=== PATIENT | male | born 1945 | race Caucasian/White ===

== ENCOUNTER 2021-03-02 12:59 | Observation (INO) ==
[~2021-03-02 12:59] MED LIST: EPHEDrine (Pressors) 50 MG/ML VIAL IV PUSH SCH; Lidocaine 2% PF 5 ML VIAL INJ SCH; Phenylephrine 40 mcg/mL 10mL (400mcg) SYRINGE IV SCH; Propofol 10 MG/ML 20 ML BTL IV SCH; fentaNYL 100 mcg/2 ml 50 MCG/ML VIAL IV SCH
[2021-03-02] MEDS ORDERED: NS 0.9% 1000 ml BAG 1,000 ML IV ONE (13:09)
[2021-03-02 14:20] LABS: ABS Eosinophils 0.1 10^3/ul (0-0.6); ABS Lymphocytes 0.5 10^3/ul (1.0-4.8); ABS Monocytes 0.6 10^3/ul (0-0.8); ABS Neutrophils 8.8 10^3/ul (1.5-7.7); Eosinophil % 0.7 %; Hematocrit 33 % (42-52); Hemoglobin 11.4 g/dL (14.0-18.0); Lymphocyte % 5.4 %; Mean Corpuscular HGB Conc 34 g/dL (31-36); Mean Corpuscular Hemoglobin 31 pg (27-31); Mean Corpuscular Volume 90 fL (80-94); Platelet Count 381 10^3/uL (150-450); Red Blood Count 3.68 10^6 /uL (4.18-5.48); Red Cell Distribution Width 13 % (10-15); White Blood Count 10.1 10^3/uL (3.5-10.8)
[2021-03-02 14:37] LABS: Albumin 3.9 g/dL (3.2-5.2); Albumin/Globulin Ratio 1.5 (1-3); Calcium 8.5 mg/dL (8.6-10.3); EGFR African American 73.1 (>60); EGFR Non-African American 60.4 (>60); Globulin 2.6 g/dL (2-4); Potassium 3.1 mmol/L (3.5-5.0); Total Bilirubin 0.8 mg/dL (0.2-1.0); Total Protein 6.5 g/dL (6.4-8.9)
[2021-03-02] MEDS ORDERED: cefTRIAXone 2 GM ADDV.VIAL 2 GM in NS 0.9% 100 ml BAG 100 ML IVPB ONE (14:50)
[2021-03-02] MEDS ORDERED: cefTRIAXone 2 GM ADDV.VIAL ONE (14:58)
[2021-03-02] MEDS: KCL 20 MEQ/100 ML IVPREMIX 20 MEQ/100 ML BAG IV SCH ×2 (17:25→21:28)
[2021-03-02] MEDS ORDERED: HYDROmorphone 1 MG/1 ML SYRINGE IV PRN (18:43)
[2021-03-02] MEDS ORDERED: DiMENhydriNATE IV 50 mg/ml 1 ml VIAL IV PUSH PRN (18:43)
[2021-03-02] MEDS ORDERED: Acetaminophen IV 1 GM/100ML 1,000 MG/100 ML VIAL IVPB PRN (18:43)
[2021-03-02] MEDS ORDERED: Naloxone 0.4 mg VIAL 0.4 mg/ml 1 ml VIAL IV PRN (18:43)
[2021-03-02] MEDS ORDERED: Ondansetron 4 mg VIAL 2 MG/ML 2 ml VIAL IV PRN ×2 (18:43→21:28)
[2021-03-02] MEDS ORDERED: fentaNYL 100 mcg/2 ml 50 MCG/ML VIAL IV PRN (18:43)
[2021-03-02] MEDS ORDERED: Potassium Chlor 20 meq TAB.ER PO ONE (20:39)
[2021-03-02 21:12] LABS: Magnesium 1.2 mg/dL (1.9-2.7)
[2021-03-02] MEDS ORDERED: Magnesium Sulf 4 GM/100 ML IV 4,000 MG/100 ML BAG IVPB ONE (21:28)
[2021-03-02] MEDS: Lactated Ringers 1000 ml BAG 1,000 ML IV SCH (21:28)
[2021-03-02 21:29] LABS: Hematocrit 31 % (42-52); Hemoglobin 10.5 g/dL (14.0-18.0)
[2021-03-02] MEDS ORDERED: Dextrose 50% Syringe 50 ml 25 GM/50 ML SYRINGE IV PUSH PRN (22:32)
[2021-03-02] MEDS: Lidocaine 2% JELLY 6 ML TOPICAL SCH (23:08)
[2021-03-03 02:04] LABS: Hematocrit 29 % (42-52)
[2021-03-03 03:50] LABS: Calcium 8.1 mg/dL (8.6-10.3); EGFR African American 105.8 (>60); EGFR Non-African American 87.4 (>60); Magnesium 2.6 mg/dL (1.9-2.7); Potassium 4.1 mmol/L (3.5-5.0)
[2021-03-03 03:59] LABS: ABS Lymphocytes 0.3 10^3/ul (1.0-4.8); ABS Monocytes 0.1 10^3/ul (0-0.8); ABS Neutrophils 3.8 10^3/ul (1.5-7.7); Lymphocyte % 6.8 %; Mean Corpuscular HGB Conc 35 g/dL (31-36); Mean Corpuscular Hemoglobin 32 pg (27-31); Mean Corpuscular Volume 90 fL (80-94); Mean Platelet Volume 6.4 fL (7.4-10.4); Nucleated Red Blood Cells % 0.1; Platelet Count 288 10^3/uL (150-450); Red Blood Count 3.18 10^6 /uL (4.18-5.48); Red Cell Distribution Width 13 % (10-15); White Blood Count 4.1 10^3/uL (3.5-10.8)
[2021-03-03] MEDS: Lactated Ringers 1000 ml BAG 1,000 ML IV SCH (07:41)
[2021-03-03] MEDS ORDERED: TIMOLOL MALEATE OPHTHALMIC SCH (09:00)
[2021-03-03] MEDS ORDERED: Vitamin THERAPEUTIC TAB PO SCH (09:00)
[2021-03-03] MEDS ORDERED: Dorzolamide/Timolol OPTH (NF) 10 ML BOT RIGHT EYE SCH (09:00)
[2021-03-03] MEDS: Lidocaine 2% JELLY 6 ML TOPICAL SCH (09:20)
[2021-03-03 11:55] VITALS: BP 113/65
[2021-03-03] MEDS ORDERED: Latanoprost 0.005% 2.5 ml BTL RIGHT EYE SCH (21:00)
== END 2021-03-03 12:10 | disposition home or self-care (01) ==
LOC: ED 12:59 → OR 20:49 → SSU 20:49
PROVIDERS: ADMIT Urology; ATTEND Urology

== ENCOUNTER 2021-06-21 11:05 | Inpatient (IN) ==
[2021-06-21 13:35] LABS: ABS Lymphocytes 0.5 10^3/ul (1.0-4.8); ABS Monocytes 0.9 10^3/ul (0-0.8); ABS Neutrophils 6.3 10^3/ul (1.5-7.7); Hematocrit 38 % (42-52); Hemoglobin 12.1 g/dL (14.0-18.0); Lymphocyte % 6.7 %; Mean Corpuscular HGB Conc 32 g/dL (31-36); Mean Corpuscular Hemoglobin 29 pg (27-31); Mean Corpuscular Volume 89 fL (80-94); Mean Platelet Volume 7.3 fL (7.4-10.4); Nucleated Red Blood Cells % 0.1; Platelet Count 224 10^3/uL (150-450); Red Blood Count 4.22 10^6 /uL (4.18-5.48); Red Cell Distribution Width 15 % (10-15); White Blood Count 7.7 10^3/uL (3.5-10.8)
[2021-06-21 13:57] LABS: ALT 54 U/L (7-52); AST 112 U/L (13-39); Albumin/Globulin Ratio 1.2 (1-3); Alkaline Phosphatase 69 U/L (35-149); Anion Gap 10 mmol/L (2-11); Blood Urea Nitrogen 53 mg/dL (6-24); C Reactive Protein 336.08 mg/L (<8.01); CO2 Carbon Dioxide 30 mmol/L (22-32); Calcium 9.4 mg/dL (8.6-10.3); Chloride 96 mmol/L (101-111); EGFR African American 36.8 (>60); EGFR Non-African American 30.4 (>60); Globulin 3.4 g/dL (2-4); Glucose 125 mg/dL (70-100); Potassium 3.5 mmol/L (3.5-5.0); Sodium 136 mmol/L (135-145); Total Protein 7.4 g/dL (6.4-8.9)
[2021-06-21 14:01] LABS: Troponin I 0.09 ng/mL (<0.03)
[2021-06-21 14:01] LABS: Urine Appearance Turbid; Urine Bilirubin Negative (Negative); Urine Blood 1+ (Negative); Urine Color Amber; Urine Glucose Negative (Negative); Urine Ketones Negative (Negative); Urine Nitrite Negative (Negative); Urine Protein 3+(>=500 mg/dL) (Negative); Urine Specific Gravity 1.013 (1.002-1.030); Urine Urobilinogen Negative (Negative)
[2021-06-21 14:03] LABS: INR 1.2 (0.86-1.15)
[2021-06-21] MEDS ORDERED: Lactated Ringers 1000 ml BAG 1,000 ML IV ONE ×2 (14:04→17:45)
[2021-06-21 14:10] LABS: Urine Amorphous Crystals Present (Absent); Urine Bacteria 1+ (Absent); Urine Red Blood Cell 2+(6-10/hpf) (Absent); Urine Squamous Epithelial Cell Present (Absent); Urine White Blood Cell 3+(>20/hpf) (Absent)
[2021-06-21] MEDS ORDERED: cefTRIAXone 1 gm/50 mL NS BAG 1 GM/50 ML BAG IV ONE (14:32)
[2021-06-21 14:42] LABS: Rapid COVID-19 Molecular Undetected (Undetected)
[2021-06-21 18:15] LABS: Influenza A Molecular Negative (Negative); Influenza B Molecular Negative (Negative)
[2021-06-21 18:25] LABS: Troponin I 0.05 ng/mL (<0.03)
[2021-06-21] MEDS ORDERED: Enoxaparin 30 MG/0.3 ML SYR SUBCUT SCH (19:00)
[2021-06-21 19:06] LABS: Urine Creatinine Concentration 167.38 mg/dL
[2021-06-21 19:39] LABS: Creatine Kinase 1211 U/L (10-223)
[2021-06-21] MEDS ORDERED: Albuterol HFA INHALER 8 gm MDI INH PRN (19:40)
[2021-06-21] MEDS: Mometasone/Formoter 200/5 MDI INH SCH (21:44)
[2021-06-22] MEDS ORDERED: Senna TAB 8.6 mg TAB PO ONE (01:53)
[2021-06-22] MEDS: Polyethylene Glycol 3350 17 GM PACKET PO SCH ×2 (02:59→09:29)
[2021-06-22 04:59] LABS: Hematocrit 30 % (42-52); Mean Corpuscular HGB Conc 33 g/dL (31-36); Mean Corpuscular Hemoglobin 29 pg (27-31); Mean Corpuscular Volume 87 fL (80-94); Mean Platelet Volume 7.3 fL (7.4-10.4); Platelet Count 158 10^3/uL (150-450); Red Blood Count 3.46 10^6 /uL (4.18-5.48); Red Cell Distribution Width 14 % (10-15)
[2021-06-22 05:10] LABS: Calcium 8.5 mg/dL (8.6-10.3); Magnesium 1.6 mg/dL (1.9-2.7); Potassium 3.1 mmol/L (3.5-5.0)
[2021-06-22 05:16] LABS: EGFR African American 47.5 (>60); EGFR Non-African American 39.3 (>60)
[2021-06-22 05:21] LABS: Troponin I 0.05 ng/mL (<0.03)
[2021-06-22] MEDS ORDERED: Potassium Chlor 20 meq TAB.ER PO ONE (06:35)
[2021-06-22] MEDS: Mometasone/Formoter 200/5 MDI INH SCH ×2 (08:34→19:59)
[2021-06-22] MEDS: Timolol 0.5% OPTH.SOL BTL OPHTHALMIC SCH (09:29)
[2021-06-22] MEDS ORDERED: cefTRIAXone 1 gm/50 mL NS BAG 1 GM/50 ML BAG IVPB SCH ×2 (15:00→16:00)
[2021-06-22 17:05] LABS: Myoglobin 358.9 ng/mL (17.4-105.7)
[2021-06-22] MEDS ORDERED: Lactated Ringers 1000 ml BAG 1,000 ML IV ONE (19:41)
[2021-06-22] MEDS ORDERED: Enoxaparin 30 MG/0.3 ML SYR SUBCUT SCH (21:00)
[2021-06-23 08:00] LABS: Hematocrit 33 % (42-52); Hemoglobin 11.2 g/dL (14.0-18.0); Mean Corpuscular HGB Conc 34 g/dL (31-36); Mean Corpuscular Hemoglobin 29 pg (27-31); Mean Corpuscular Volume 87 fL (80-94); Mean Platelet Volume 6.8 fL (7.4-10.4); Platelet Count 195 10^3/uL (150-450); Red Blood Count 3.81 10^6 /uL (4.18-5.48); Red Cell Distribution Width 14 % (10-15); White Blood Count 5.5 10^3/uL (3.5-10.8)
[2021-06-23 08:17] LABS: Calcium 8.8 mg/dL (8.6-10.3); EGFR African American 72.4 (>60); EGFR Non-African American 59.9 (>60); Magnesium 1.6 mg/dL (1.9-2.7); Potassium 3.3 mmol/L (3.5-5.0)
[2021-06-23] MEDS: Polyethylene Glycol 3350 17 GM PACKET PO SCH (08:26)
[2021-06-23] MEDS: Timolol 0.5% OPTH.SOL BTL OPHTHALMIC SCH (08:32)
[2021-06-23] MEDS: Mometasone/Formoter 200/5 MDI INH SCH (09:44)
[2021-06-23] MEDS ORDERED: Potassium Chlor 20 meq TAB.ER PO ONE (10:33)
[2021-06-23] MEDS ORDERED: Magnesium Sulf 4 GM/100 ML IV 4,000 MG/100 ML BAG IVPB ONE (10:33)
[2021-06-23 11:24] VITALS: BP 107/71
== END 2021-06-23 14:53 | disposition home or self-care (01) | DRG 690 ==
LOC: SUATTDRO → ED 11:05 → MED 11:05 → SSU 06-22 21:13
PROVIDERS: ADMIT Internal Medicine; ATTEND Internal Medicine

== ENCOUNTER 2022-05-24 13:17 | Observation (INO) ==
[~2022-05-24 13:17] MED LIST changes: +Buffered Lidocaine 1% SYRIN 1 ml INTRADERM ONE; -EPHEDrine (Pressors) 50 MG/ML VIAL IV PUSH SCH; +Lactated Ringers 1000 ml BAG 1,000 ML IV SCH; -Lidocaine 2% PF 5 ML VIAL INJ SCH; +Naloxone 0.4 mg VIAL 0.4 mg/ml 1 ml VIAL IV PRN; -Phenylephrine 40 mcg/mL 10mL (400mcg) SYRINGE IV SCH; -Propofol 10 MG/ML 20 ML BTL IV SCH; +fentaNYL 100 mcg/2 ml 50 MCG/ML VIAL IV PRN; -fentaNYL 100 mcg/2 ml 50 MCG/ML VIAL IV SCH
[2022-05-24] MEDS ORDERED: Propofol 10 MG/ML 20 ML BTL ONE ×2 (16:09)
[2022-05-24] MEDS ORDERED: Phenylephrine 40 mcg/mL 10mL (400mcg) SYRINGE ONE ×2 (16:10→16:35)
[2022-05-24] MEDS ORDERED: Propofol 10 mg/ml 100 ML BTL 100 ML ONE (16:16)
[2022-05-24] MEDS ORDERED: Sterile Water for Inj 10 ML ONE ×2 (16:37→16:44)
[2022-05-24] MEDS ORDERED: Acetaminophen IV 1 GM/100ML 1,000 MG/100 ML BAG IV PRN (19:46)
[2022-05-24] MEDS ORDERED: Zosyn per Pharmacy NOTE FOLLOW UP SCH (20:00)
[2022-05-24] MEDS ORDERED: D5LR 1000 ml BAG 1,000 ML IV SCH (20:00)
[2022-05-24] MEDS ORDERED: Piperacillin/Tazobac ADVAN 3.375 GM in NS 0.9% 100 ml BAG 100 ML IV ONE (22:00)
[2022-05-24] MEDS: Pantoprazole VIAL 40 MG VIAL IV SCH (22:06)
[2022-05-24] MEDS ORDERED: Fluconazole 400 MG IVPREMIX 400 MG/200 ML BAG IVPB SCH (23:00)
[2022-05-24 23:01] LABS: ABS Lymphocytes 0.5 10^3/ul (1.0-4.8); ABS Monocytes 0.2 10^3/ul (0-0.8); ABS Neutrophils 5.4 10^3/ul (1.5-7.7); Eosinophil % 0.1 %; Hematocrit 24 % (42-52); Hemoglobin 8.4 g/dL (14.0-18.0); Lymphocyte % 8.7 %; Mean Corpuscular HGB Conc 35 g/dL (31-36); Mean Corpuscular Hemoglobin 30 pg (27-31); Mean Corpuscular Volume 88 fL (80-94); Mean Platelet Volume 6.9 fL (7.4-10.4); Platelet Count 256 10^3/uL (150-450); Red Blood Count 2.78 10^6 /uL (4.18-5.48); Red Cell Distribution Width 14 % (10-15); White Blood Count 6.1 10^3/uL (3.5-10.8)
[2022-05-24 23:16] LABS: Albumin 3.4 g/dL (3.2-5.2); Albumin/Globulin Ratio 1.5 (1-3); Calcium 8.3 mg/dL (8.6-10.3); Globulin 2.2 g/dL (2-4); Total Bilirubin 0.5 mg/dL (0.2-1.0); Total Protein 5.6 g/dL (6.4-8.9); eGFR CKD-EPI 32.2 (>60)
[2022-05-25] MEDS: ZOSYN 3.375 GM Q8H per EXTENDED INFUSION IV SCH ×2 (02:46→12:15)
[2022-05-25] MEDS: Pantoprazole VIAL 40 MG VIAL IV SCH (08:10)
[2022-05-25] MEDS ORDERED: methylPREDNISolone SOD SUCC 40 mg/ml 1 ml VIAL IV SCH (09:00)
[2022-05-25] MEDS ORDERED: Timolol 0.5% OPTH.SOL BTL RIGHT EYE SCH (09:00)
[2022-05-25 10:18] LABS: ABS Lymphocytes 0.4 10^3/ul (1.0-4.8); ABS Monocytes 0.5 10^3/ul (0-0.8); ABS Neutrophils 6.7 10^3/ul (1.5-7.7); Eosinophil % 0.1 %; Hematocrit 27 % (42-52); Hemoglobin 9.2 g/dL (14.0-18.0); Lymphocyte % 5.8 %; Mean Corpuscular HGB Conc 34 g/dL (31-36); Mean Corpuscular Hemoglobin 30 pg (27-31); Mean Corpuscular Volume 87 fL (80-94); Mean Platelet Volume 6.8 fL (7.4-10.4); Platelet Count 302 10^3/uL (150-450); Red Blood Count 3.11 10^6 /uL (4.18-5.48); Red Cell Distribution Width 13 % (10-15); White Blood Count 7.7 10^3/uL (3.5-10.8)
[2022-05-25 10:49] LABS: % Iron Saturation 56 % (15-55); C Reactive Protein 51.1 mg/L (<8.01); Calcium 8.5 mg/dL (8.6-10.3); Iron 98 ug/dL (50-212); Potassium 4.2 mmol/L (3.5-5.0); Total Iron Binding Capacity 175 mcg/dL (250-450); Transferrin 125 mg/dL (203-362); Unsaturated Iron Binding 77 ug/dL; eGFR CKD-EPI 30.6 (>60)
[2022-05-25] MEDS ORDERED: Lactated Ringers 1000 ml BAG 1,000 ML IV ONE (10:58)
[2022-05-25 11:14] LABS: Folate > 20.00 ng/mL (5.90-24.80)
[2022-05-25 11:15] LABS: Vitamin B12 1224 pg/mL (180-914)
[2022-05-25 15:46] LABS: Calcium 8.3 mg/dL (8.6-10.3); eGFR CKD-EPI 34.4 (>60)
[2022-05-25 16:17] VITALS: BP 120/74
== END 2022-05-25 18:30 | disposition home or self-care (01) ==
LOC: SSU 13:17 → OR 13:17 → SUATTDRO 21:14
PROVIDERS: ADMIT Internal Medicine; ATTEND Internal Medicine
PROC: O.GIEGD (2022-05-24 15:00)

== ENCOUNTER 2022-08-26 10:00 | Inpatient (IN) ==
[2022-08-26] MEDS ORDERED: Lactated Ringers 1000 ml BAG 1,000 ML IV ONE ×2 (11:43→13:46)
[2022-08-26 11:48] LABS: PO2 Arterial 60 mmHg (80-100)
[2022-08-26 11:57] LABS: PCO2 Arterial 88 mmHg (35-45)
[2022-08-26 12:05] LABS: ABS Eosinophils 0.4 10^3/ul (0-0.6); ABS Lymphocytes 0.6 10^3/ul (1.0-4.8); ABS Monocytes 0.3 10^3/ul (0-0.8); ABS Neutrophils 12.3 10^3/ul (1.5-7.7); Hematocrit 50 % (42-52); Hemoglobin 15.9 g/dL (14.0-18.0); Lymphocyte % 4.3 %; Mean Corpuscular HGB Conc 32 g/dL (31-36); Mean Corpuscular Hemoglobin 30 pg (27-31); Mean Corpuscular Volume 93 fL (80-94); Nucleated Red Blood Cells % 0.1; Platelet Count 210 10^3/uL (150-450); Red Blood Count 5.36 10^6 /uL (4.18-5.48); Red Cell Distribution Width 14 % (10-15); White Blood Count 13.7 10^3/uL (3.5-10.8)
[2022-08-26 12:38] LABS: High Sens Troponin Baseline 9 pg/mL (<20)
[2022-08-26 12:43] LABS: ALT 18 U/L (7-52); Albumin 4.9 g/dL (3.2-5.2); Alkaline Phosphatase 65 U/L (35-149); Anion Gap 7 mmol/L (2-11); Blood Urea Nitrogen 44 mg/dL (6-24); C Reactive Protein 5.55 mg/L (<8.01); CO2 Carbon Dioxide 35 mmol/L (22-32); Calcium 10.2 mg/dL (8.6-10.3); Chloride 97 mmol/L (101-111); Creatine Kinase 24 U/L (10-223); Globulin 2.4 g/dL (2-4); Glucose 208 mg/dL (70-100); Magnesium 2.1 mg/dL (1.9-2.7); Sodium 139 mmol/L (135-145); Total Protein 7.3 g/dL (6.4-8.9); eGFR CKD-EPI 61.3 (>60)
[2022-08-26 12:45] LABS: Activated Partial Thrombo Time 19.5 seconds (26.0-38.0)
[2022-08-26 13:11] LABS: PO2 Arterial 77 mmHg (80-100)
[2022-08-26 13:13] LABS: PCO2 Arterial 74 mmHg (35-45)
[2022-08-26 13:51] LABS: High Sensitivity Troponin 1 Hr 9 pg/mL (<20)
[2022-08-26 14:27] LABS: TSH Ultra Thyroid Stim Horm 0.92 mcIU/mL (0.34-5.60)
[2022-08-26] MEDS: Albuterol/Ipratropium NEB.SOL (2.5/0.5 MG) 3 ML NEB.SOLN INH SCH ×2 (15:14→19:30)
[2022-08-26] MEDS ORDERED: Hydrocortisone INJ 100 MG/2ML 2 ML VIAL IV ONE (15:59)
[2022-08-26 17:11] LABS: PCO2 Arterial 65 mmHg (35-45); PO2 Arterial 76 mmHg (80-100)
[2022-08-26] MEDS: Enoxaparin 40 MG/0.4 ML SYR SUBCUT SCH (17:11)
[2022-08-26 17:23] LABS: Phosphorus 4.2 mg/dL (2.5-5.0)
[2022-08-26] MEDS ORDERED: Haloperidol 5 mg/ml SDV IV/IM 5 MG/ML AMP ONE (20:16)
[2022-08-26] MEDS: Haloperidol 5 mg/ml SDV IV/IM 5 MG/ML AMP IV SLOW PU ONE ×2 (20:17→20:37)
[2022-08-26] MEDS: CMC:Dorzolamide/Timolol OPTH (NF) 10 ML BOT RIGHT EYE SCH (20:40)
[2022-08-26] MEDS: Latanoprost 0.005% 2.5 ml BTL RIGHT EYE SCH (20:40)
[2022-08-26] MEDS ORDERED: NS 0.9% IVPB ONE (23:00)
[2022-08-26] MEDS ORDERED: ACYCLOVIR IVPB ONE (23:00)
[2022-08-27] MEDS: Hydrocortisone INJ 100 MG/2ML 2 ML VIAL IV SCH ×2 (00:29→05:07)
[2022-08-27 05:52] LABS: Albumin 3.8 g/dL (3.2-5.2); Albumin/Globulin Ratio 1.9 (1-3); Calcium 9.4 mg/dL (8.6-10.3); Magnesium 1.7 mg/dL (1.9-2.7); Phosphorus 4.3 mg/dL (2.5-5.0); Potassium 4.8 mmol/L (3.5-5.0); Total Bilirubin 0.4 mg/dL (0.2-1.0); Total Protein 5.8 g/dL (6.4-8.9); eGFR CKD-EPI 65.1 (>60)
[2022-08-27] MEDS ORDERED: Iodixanol (CONTRAST) 320 MG/ML 100 ML SDV IV ONE (05:54)
[2022-08-27 06:10] LABS: PCO2 Arterial 64 mmHg (35-45); PO2 Arterial 69 mmHg (80-100)
[2022-08-27] MEDS ORDERED: Magnesium Sulfate 2 gm BAG 2 GM/50 ML BAG IVPB ONE (06:47)
[2022-08-27 07:19] LABS: ABS Lymphocytes 0.4 10^3/ul (1.0-4.8); ABS Monocytes 0.3 10^3/ul (0-0.8); ABS Neutrophils 6.9 10^3/ul (1.5-7.7); Hematocrit 40 % (42-52); Hemoglobin 13.3 g/dL (14.0-18.0); Lymphocyte % 5.4 %; Mean Corpuscular HGB Conc 33 g/dL (31-36); Mean Corpuscular Hemoglobin 30 pg (27-31); Mean Corpuscular Volume 91 fL (80-94); Mean Platelet Volume 6.7 fL (7.4-10.4); Platelet Count 178 10^3/uL (150-450); Red Blood Count 4.43 10^6 /uL (4.18-5.48); Red Cell Distribution Width 14 % (10-15); White Blood Count 7.6 10^3/uL (3.5-10.8)
[2022-08-27] MEDS: Albuterol/Ipratropium NEB.SOL (2.5/0.5 MG) 3 ML NEB.SOLN INH SCH (08:10)
[2022-08-27] MEDS ORDERED: Albuterol/Ipratropium NEB.SOL (2.5/0.5 MG) 3 ML NEB.SOLN INH PRN (10:38)
[2022-08-27 11:34] LABS: High Sensitivity Troponin 1 Hr 7 pg/mL (<20)
[2022-08-27 13:21] LABS: Urine Appearance Turbid; Urine Bilirubin Negative (Negative); Urine Blood Negative (Negative); Urine Color Yellow; Urine Glucose Negative (Negative); Urine Ketones Negative (Negative); Urine Nitrite Negative (Negative); Urine Protein 2+(100 mg/dL) (Negative); Urine Specific Gravity 1.044 (1.002-1.030); Urine Urobilinogen Negative (Negative)
[2022-08-27 13:30] LABS: Urine Bacteria 1+ (Absent); Urine Red Blood Cell 1+(3-5/hpf) (Absent); Urine White Blood Cell 2+(11-20/hpf) (Absent)
[2022-08-27] MEDS: CMC:Dorzolamide/Timolol OPTH (NF) 10 ML BOT RIGHT EYE SCH ×2 (13:40→21:36)
[2022-08-27] MEDS: Enoxaparin 40 MG/0.4 ML SYR SUBCUT SCH (13:43)
[2022-08-27] MEDS ORDERED: Hydrocortisone INJ 100 MG/2ML 2 ML VIAL IV SCH (14:00)
[2022-08-27 14:40] LABS: HDL Cholesterol 39.4 mg/dL
[2022-08-27] MEDS ORDERED: Piperacillin/Tazobac ADVAN 3.375 GM in NS 0.9% 100 ml BAG 100 ML IV ONE (19:44)
[2022-08-27] MEDS ORDERED: Zosyn per Pharmacy NOTE FOLLOW UP SCH (20:00)
[2022-08-27] MEDS: Latanoprost 0.005% 2.5 ml BTL RIGHT EYE SCH (21:33)
[2022-08-28] MEDS: ZOSYN 3.375 GM Q6H - Intermittant 30 min Infusion IV SCH ×4 (01:51→13:06)
[2022-08-28] MEDS ORDERED: Hydrocortisone INJ 100 MG/2ML 2 ML VIAL IV SCH (06:00)
[2022-08-28] MEDS: CMC:Dorzolamide/Timolol OPTH (NF) 10 ML BOT RIGHT EYE SCH ×2 (09:38→20:04)
[2022-08-28 09:44] LABS: Hematocrit 45 % (42-52); Hemoglobin 14.8 g/dL (14.0-18.0); Mean Corpuscular HGB Conc 33 g/dL (31-36); Mean Corpuscular Hemoglobin 30 pg (27-31); Mean Corpuscular Volume 91 fL (80-94); Mean Platelet Volume 6.6 fL (7.4-10.4); Platelet Count 179 10^3/uL (150-450); Red Blood Count 4.96 10^6 /uL (4.18-5.48); Red Cell Distribution Width 14 % (10-15); White Blood Count 11.6 10^3/uL (3.5-10.8)
[2022-08-28 10:24] LABS: Calcium 9.8 mg/dL (8.6-10.3); Potassium 4.1 mmol/L (3.5-5.0); eGFR CKD-EPI 80.9 (>60)
[2022-08-28] MEDS: Cholecalciferol (VIT D3) 1,000 unit TAB PO SCH (11:12)
[2022-08-28] MEDS: Enoxaparin 40 MG/0.4 ML SYR SUBCUT SCH (17:08)
[2022-08-28] MEDS: [UNRECOGNIZED DRUG - OTHER] IV SCH ×2 (17:20→23:59)
[2022-08-28] MEDS: ZOSYN 3.375 GM IV SCH ×2 (17:20→23:59)
[2022-08-28] MEDS: Sulfamethox/Trimethoprim DS TAB 800/160 mg PO SCH (18:12)
[2022-08-28] MEDS: Latanoprost 0.005% 2.5 ml BTL RIGHT EYE SCH (20:04)
[2022-08-29 04:49] LABS: Hematocrit 46 % (42-52); Hemoglobin 14.8 g/dL (14.0-18.0); Mean Corpuscular HGB Conc 33 g/dL (31-36); Mean Corpuscular Hemoglobin 30 pg (27-31); Mean Corpuscular Volume 93 fL (80-94); Mean Platelet Volume 6.7 fL (7.4-10.4); Platelet Count 152 10^3/uL (150-450); Red Blood Count 4.92 10^6 /uL (4.18-5.48); Red Cell Distribution Width 14 % (10-15); White Blood Count 10.2 10^3/uL (3.5-10.8)
[2022-08-29] MEDS ORDERED: hydrALAZINE 20 mg/ml 1 ML Vial IV IV SLOW PU PRN (04:53)
[2022-08-29 05:28] LABS: Albumin 4.3 g/dL (3.2-5.2); Albumin/Globulin Ratio 1.9 (1-3); Calcium 9.4 mg/dL (8.6-10.3); Globulin 2.3 g/dL (2-4); Magnesium 2.3 mg/dL (1.9-2.7); Total Bilirubin 0.6 mg/dL (0.2-1.0); Total Protein 6.6 g/dL (6.4-8.9); eGFR CKD-EPI 59.5 (>60)
[2022-08-29 05:29] LABS: Potassium 5.1 mmol/L (3.5-5.0)
[2022-08-29 05:34] LABS: PO2 Arterial 100 mmHg (80-100)
[2022-08-29 05:43] LABS: PCO2 Arterial 96 mmHg (35-45)
[2022-08-29] MEDS: [UNRECOGNIZED DRUG - OTHER] IV SCH ×2 (07:26→14:48)
[2022-08-29] MEDS: ZOSYN 3.375 GM IV SCH ×2 (07:26→14:48)
[2022-08-29 10:06] LABS: PCO2 Arterial 59 mmHg (35-45); PO2 Arterial 72 mmHg (80-100)
[2022-08-29] MEDS: CMC:Dorzolamide/Timolol OPTH (NF) 10 ML BOT RIGHT EYE SCH ×2 (10:55→20:53)
[2022-08-29] MEDS: Cholecalciferol (VIT D3) 1,000 unit TAB PO SCH (10:55)
[2022-08-29] MEDS: Hydrocortisone INJ 100 MG/2ML 2 ML VIAL IV SCH ×2 (10:56→20:49)
[2022-08-29] MEDS: Pantoprazole VIAL 40 MG VIAL IV SCH (10:56)
[2022-08-29] MEDS ORDERED: D5LR 1000 ml BAG 1,000 ML IV SCH (11:00)
[2022-08-29] MEDS: Enoxaparin 40 MG/0.4 ML SYR SUBCUT SCH (13:41)
[2022-08-29] MEDS: Latanoprost 0.005% 2.5 ml BTL RIGHT EYE SCH (20:53)
[2022-08-29] MEDS: cefTRIAXone 1 gm/50 mL D5W 1 GM/50 ML BAG IV SCH (22:48)
[2022-08-30] MEDS: Hydrocortisone INJ 100 MG/2ML 2 ML VIAL IV SCH ×3 (04:45→21:31)
[2022-08-30 05:46] LABS: Hematocrit 42 % (42-52); Hemoglobin 13.8 g/dL (14.0-18.0); Mean Corpuscular HGB Conc 33 g/dL (31-36); Mean Corpuscular Hemoglobin 30 pg (27-31); Mean Corpuscular Volume 92 fL (80-94); Platelet Count 145 10^3/uL (150-450); Red Blood Count 4.56 10^6 /uL (4.18-5.48); Red Cell Distribution Width 14 % (10-15); White Blood Count 7.7 10^3/uL (3.5-10.8)
[2022-08-30 06:05] LABS: Calcium 9.2 mg/dL (8.6-10.3); Magnesium 2.2 mg/dL (1.9-2.7); Potassium 4.2 mmol/L (3.5-5.0); eGFR CKD-EPI 38.6 (>60)
[2022-08-30] MEDS ORDERED: Lactated Ringers 1000 ml BAG 1,000 ML IV SCH (08:00)
[2022-08-30] MEDS: CMC:Dorzolamide/Timolol OPTH (NF) 10 ML BOT RIGHT EYE SCH ×2 (08:58→19:54)
[2022-08-30] MEDS: Cholecalciferol (VIT D3) 1,000 unit TAB PO SCH (08:58)
[2022-08-30] MEDS: Pantoprazole VIAL 40 MG VIAL IV SCH (08:58)
[2022-08-30] MEDS: Enoxaparin 40 MG/0.4 ML SYR SUBCUT SCH (14:06)
[2022-08-30 15:40] LABS: Urine Creatinine Concentration 75.48 mg/dL
[2022-08-30 15:57] LABS: Calcium 8.6 mg/dL (8.6-10.3); Potassium 3.9 mmol/L (3.5-5.0); eGFR CKD-EPI 52.8 (>60)
[2022-08-30] MEDS: Sulfamethox/Trimethoprim DS TAB 800/160 mg PO SCH (16:29)
[2022-08-30] MEDS: Latanoprost 0.005% 2.5 ml BTL RIGHT EYE SCH (19:54)
[2022-08-30] MEDS: cefTRIAXone 1 gm/50 mL D5W 1 GM/50 ML BAG IV SCH (20:21)
[2022-08-31 04:43] LABS: Hematocrit 38 % (42-52); Hemoglobin 12.7 g/dL (14.0-18.0); Mean Corpuscular HGB Conc 33 g/dL (31-36); Mean Corpuscular Hemoglobin 30 pg (27-31); Mean Corpuscular Volume 91 fL (80-94); Mean Platelet Volume 6.9 fL (7.4-10.4); Platelet Count 136 10^3/uL (150-450); Red Cell Distribution Width 14 % (10-15); White Blood Count 7.5 10^3/uL (3.5-10.8)
[2022-08-31 05:17] LABS: Calcium 8.9 mg/dL (8.6-10.3); Potassium 4.1 mmol/L (3.5-5.0); eGFR CKD-EPI 61.3 (>60)
[2022-08-31] MEDS: Hydrocortisone INJ 100 MG/2ML 2 ML VIAL IV SCH ×3 (06:04→21:12)
[2022-08-31] MEDS: Pantoprazole VIAL 40 MG VIAL IV SCH (08:40)
[2022-08-31] MEDS: Cholecalciferol (VIT D3) 1,000 unit TAB PO SCH (08:40)
[2022-08-31] MEDS: CMC:Dorzolamide/Timolol OPTH (NF) 10 ML BOT RIGHT EYE SCH ×2 (08:41→21:11)
[2022-08-31] MEDS: Enoxaparin 40 MG/0.4 ML SYR SUBCUT SCH (15:05)
[2022-08-31] MEDS: cefTRIAXone 1 gm/50 mL D5W 1 GM/50 ML BAG IV SCH (21:11)
[2022-08-31] MEDS: Latanoprost 0.005% 2.5 ml BTL RIGHT EYE SCH (21:11)
[2022-09-01] MEDS: Hydrocortisone INJ 100 MG/2ML 2 ML VIAL IV SCH ×3 (05:18→21:22)
[2022-09-01 05:24] LABS: Hematocrit 39 % (42-52); Hemoglobin 12.6 g/dL (14.0-18.0); Mean Corpuscular HGB Conc 33 g/dL (31-36); Mean Corpuscular Hemoglobin 30 pg (27-31); Mean Corpuscular Volume 91 fL (80-94); Mean Platelet Volume 6.9 fL (7.4-10.4); Platelet Count 131 10^3/uL (150-450); Red Blood Count 4.24 10^6 /uL (4.18-5.48); Red Cell Distribution Width 13 % (10-15); White Blood Count 5.1 10^3/uL (3.5-10.8)
[2022-09-01 06:01] LABS: Potassium 4.6 mmol/L (3.5-5.0); eGFR CKD-EPI 65.8 (>60)
[2022-09-01] MEDS: Cholecalciferol (VIT D3) 1,000 unit TAB PO SCH (09:49)
[2022-09-01] MEDS: Pantoprazole VIAL 40 MG VIAL IV SCH (09:49)
[2022-09-01] MEDS: CMC:Dorzolamide/Timolol OPTH (NF) 10 ML BOT RIGHT EYE SCH ×2 (09:49→21:17)
[2022-09-01] MEDS: Enoxaparin 40 MG/0.4 ML SYR SUBCUT SCH (15:15)
[2022-09-01] MEDS: Latanoprost 0.005% 2.5 ml BTL RIGHT EYE SCH (21:19)
[2022-09-01] MEDS: cefTRIAXone 1 gm/50 mL D5W 1 GM/50 ML BAG IV SCH (22:55)
[2022-09-02 06:40] LABS: Albumin 3.5 g/dL (3.2-5.2); Albumin/Globulin Ratio 1.8 (1-3); Calcium 8.8 mg/dL (8.6-10.3); Potassium 4.4 mmol/L (3.5-5.0); Total Bilirubin 0.4 mg/dL (0.2-1.0); Total Protein 5.5 g/dL (6.4-8.9); eGFR CKD-EPI 70.2 (>60)
[2022-09-02 07:04] LABS: ABS Lymphocytes 0.6 10^3/ul (1.0-4.8); ABS Monocytes 0.4 10^3/ul (0-0.8); ABS Neutrophils 4.3 10^3/ul (1.5-7.7); Eosinophil % 0.3 %; Hematocrit 44 % (42-52); Hemoglobin 13.5 g/dL (14.0-18.0); Mean Corpuscular HGB Conc 31 g/dL (31-36); Mean Corpuscular Hemoglobin 30 pg (27-31); Mean Corpuscular Volume 96 fL (80-94); Mean Platelet Volume 7.3 fL (7.4-10.4); Nucleated Red Blood Cells % 0.1; Platelet Count 124 10^3/uL (150-450); Red Blood Count 4.54 10^6 /uL (4.18-5.48); Red Cell Distribution Width 14 % (10-15); White Blood Count 5.4 10^3/uL (3.5-10.8)
[2022-09-02] MEDS: Pantoprazole VIAL 40 MG VIAL IV SCH (10:01)
[2022-09-02] MEDS: CMC:Dorzolamide/Timolol OPTH (NF) 10 ML BOT RIGHT EYE SCH ×2 (10:01→20:09)
[2022-09-02] MEDS: Cholecalciferol (VIT D3) 1,000 unit TAB PO SCH (10:01)
[2022-09-02] MEDS: Enoxaparin 40 MG/0.4 ML SYR SUBCUT SCH (14:24)
[2022-09-02] MEDS: Sulfamethox/Trimethoprim DS TAB 800/160 mg PO SCH (14:24)
[2022-09-02 17:21] LABS: PCO2 Arterial 54 mmHg (35-45); PO2 Arterial 96 mmHg (80-100)
[2022-09-02] MEDS: SPIRIVA Respimat (tiotropium) 2.5 mcg/inh Inhaler INH SCH (19:23)
[2022-09-02] MEDS: Latanoprost 0.005% 2.5 ml BTL RIGHT EYE SCH (20:08)
[2022-09-02] MEDS: cefTRIAXone 1 gm/50 mL D5W 1 GM/50 ML BAG IV SCH (21:07)
[2022-09-03] MEDS: SPIRIVA Respimat (tiotropium) 2.5 mcg/inh Inhaler INH SCH (07:54)
[2022-09-03 09:17] LABS: CO2 Carbon Dioxide 35 mmol/L (22-32); Calcium 9.3 mg/dL (8.6-10.3); Chloride 100 mmol/L (101-111); Sodium 139 mmol/L (135-145)
[2022-09-03 09:21] LABS: Anion Gap 4 mmol/L (2-11)
[2022-09-03 09:23] LABS: Blood Urea Nitrogen 24 mg/dL (6-24); Glucose 71 mg/dL (70-100); eGFR CKD-EPI 78.9 (>60)
[2022-09-03] MEDS: Cholecalciferol (VIT D3) 1,000 unit TAB PO SCH (12:17)
[2022-09-03] MEDS: CMC:Dorzolamide/Timolol OPTH (NF) 10 ML BOT RIGHT EYE SCH ×2 (12:17→21:08)
[2022-09-03] MEDS: Enoxaparin 40 MG/0.4 ML SYR SUBCUT SCH (15:01)
[2022-09-03] MEDS: Pantoprazole VIAL 40 MG VIAL IV SCH (19:08)
[2022-09-03] MEDS: Latanoprost 0.005% 2.5 ml BTL RIGHT EYE SCH (21:08)
[2022-09-04 06:32] LABS: Calcium 9.3 mg/dL (8.6-10.3); Magnesium 1.9 mg/dL (1.9-2.7); eGFR CKD-EPI 75.2 (>60)
[2022-09-04] MEDS: SPIRIVA Respimat (tiotropium) 2.5 mcg/inh Inhaler INH SCH (07:06)
[2022-09-04 10:42] LABS: PCO2 Arterial 54 mmHg (35-45); PO2 Arterial 60 mmHg (80-100)
[2022-09-04 12:21] LABS: Urine Appearance Cloudy; Urine Bilirubin Negative (Negative); Urine Blood Trace (Intact) (Negative); Urine Color Yellow; Urine Glucose Negative (Negative); Urine Ketones Negative (Negative); Urine Nitrite Negative (Negative); Urine Protein 1+ (30 mg/dL) (Negative); Urine Urobilinogen 0.2 (Negative) (Negative); Urine pH 7.5 (5.0-9.0)
[2022-09-04 12:26] LABS: Urine Bacteria Absent (Absent); Urine Red Blood Cell 3+(>10/hpf) (Absent); Urine Squamous Epithelial Cell Present (Absent); Urine White Blood Cell 3+(>20/hpf) (Absent); Urine Yeast Present (Absent)
[2022-09-04] MEDS: Cholecalciferol (VIT D3) 1,000 unit TAB PO SCH (14:49)
[2022-09-04] MEDS: CMC:Dorzolamide/Timolol OPTH (NF) 10 ML BOT RIGHT EYE SCH ×2 (14:49→20:18)
[2022-09-04] MEDS: Pantoprazole VIAL 40 MG VIAL IV SCH (14:50)
[2022-09-04] MEDS: Enoxaparin 40 MG/0.4 ML SYR SUBCUT SCH (15:31)
[2022-09-04] MEDS: Latanoprost 0.005% 2.5 ml BTL RIGHT EYE SCH (20:18)
[2022-09-04] MEDS: Polyethylene Glycol 3350 17 GM PACKET PO SCH (20:19)
[2022-09-04] MEDS: Senna TAB 8.6 mg TAB PO SCH (20:19)
[2022-09-05] MEDS: SPIRIVA Respimat (tiotropium) 2.5 mcg/inh Inhaler INH SCH (07:10)
[2022-09-05] MEDS: Cholecalciferol (VIT D3) 1,000 unit TAB PO SCH (11:17)
[2022-09-05] MEDS: CMC:Dorzolamide/Timolol OPTH (NF) 10 ML BOT RIGHT EYE SCH ×2 (11:18→20:15)
[2022-09-05] MEDS: Polyethylene Glycol 3350 17 GM PACKET PO SCH ×2 (11:18→20:15)
[2022-09-05] MEDS: Pantoprazole VIAL 40 MG VIAL IV SCH (12:18)
[2022-09-05] MEDS: Enoxaparin 40 MG/0.4 ML SYR SUBCUT SCH (14:40)
[2022-09-05] MEDS: Latanoprost 0.005% 2.5 ml BTL RIGHT EYE SCH (20:15)
[2022-09-05] MEDS: Senna TAB 8.6 mg TAB PO SCH (20:15)
[2022-09-06] MEDS: SPIRIVA Respimat (tiotropium) 2.5 mcg/inh Inhaler INH SCH (07:02)
[2022-09-06 10:44] LABS: ABS Eosinophils 0.2 10^3/ul (0-0.6); ABS Lymphocytes 1.1 10^3/ul (1.0-4.8); ABS Monocytes 0.5 10^3/ul (0-0.8); ABS Neutrophils 6.3 10^3/ul (1.5-7.7); Eosinophil % 2.6 %; Hematocrit 46 % (42-52); Hemoglobin 15.5 g/dL (14.0-18.0); Lymphocyte % 13.4 %; Mean Corpuscular HGB Conc 34 g/dL (31-36); Mean Corpuscular Hemoglobin 30 pg (27-31); Mean Corpuscular Volume 90 fL (80-94); Mean Platelet Volume 6.5 fL (7.4-10.4); Nucleated Red Blood Cells % 0.1; Platelet Count 210 10^3/uL (150-450); Red Blood Count 5.14 10^6 /uL (4.18-5.48); Red Cell Distribution Width 14 % (10-15); White Blood Count 8.1 10^3/uL (3.5-10.8)
[2022-09-06 11:28] LABS: Albumin 4.1 g/dL (3.2-5.2); Albumin/Globulin Ratio 1.8 (1-3); Calcium 9.4 mg/dL (8.6-10.3); Globulin 2.3 g/dL (2-4); Potassium 4.5 mmol/L (3.5-5.0); Total Bilirubin 0.7 mg/dL (0.2-1.0); Total Protein 6.4 g/dL (6.4-8.9)
[2022-09-06] MEDS: Cholecalciferol (VIT D3) 1,000 unit TAB PO SCH (11:37)
[2022-09-06] MEDS: CMC:Dorzolamide/Timolol OPTH (NF) 10 ML BOT RIGHT EYE SCH ×2 (11:37→20:17)
[2022-09-06] MEDS: Polyethylene Glycol 3350 17 GM PACKET PO SCH ×2 (11:38→22:33)
[2022-09-06] MEDS: Enoxaparin 40 MG/0.4 ML SYR SUBCUT SCH (14:08)
[2022-09-06] MEDS ORDERED: NS 0.9% 1000 ml BAG 1,000 ML IV SCH (17:45)
[2022-09-06] MEDS: Latanoprost 0.005% 2.5 ml BTL RIGHT EYE SCH (20:17)
[2022-09-06] MEDS: Senna TAB 8.6 mg TAB PO SCH (22:33)
[2022-09-06] MEDS: NS 0.9% 1000 ml BAG 1,000 ML IV SCH (22:45)
[2022-09-07] MEDS: NS 0.9% 1000 ml BAG 1,000 ML IV SCH ×3 (03:45→14:19)
[2022-09-07] MEDS: SPIRIVA Respimat (tiotropium) 2.5 mcg/inh Inhaler INH SCH (07:24)
[2022-09-07] MEDS: CMC:Dorzolamide/Timolol OPTH (NF) 10 ML BOT RIGHT EYE SCH ×2 (09:22→21:49)
[2022-09-07] MEDS: Cholecalciferol (VIT D3) 1,000 unit TAB PO SCH (09:22)
[2022-09-07] MEDS: Polyethylene Glycol 3350 17 GM PACKET PO SCH ×3 (10:09→21:49)
[2022-09-07] MEDS: Enoxaparin 40 MG/0.4 ML SYR SUBCUT SCH (14:21)
[2022-09-07] MEDS: Latanoprost 0.005% 2.5 ml BTL RIGHT EYE SCH (21:47)
[2022-09-07] MEDS: Senna TAB 8.6 mg TAB PO SCH (21:49)
[2022-09-08] MEDS: SPIRIVA Respimat (tiotropium) 2.5 mcg/inh Inhaler INH SCH (07:05)
[2022-09-08 07:07] LABS: ABS Eosinophils 0.1 10^3/ul (0-0.6); ABS Lymphocytes 0.6 10^3/ul (1.0-4.8); ABS Monocytes 0.3 10^3/ul (0-0.8); ABS Neutrophils 3.9 10^3/ul (1.5-7.7); Eosinophil % 2.1 %; Hematocrit 42 % (42-52); Lymphocyte % 12.9 %; Mean Corpuscular HGB Conc 33 g/dL (31-36); Mean Corpuscular Hemoglobin 30 pg (27-31); Mean Corpuscular Volume 91 fL (80-94); Mean Platelet Volume 6.6 fL (7.4-10.4); Platelet Count 191 10^3/uL (150-450); Red Blood Count 4.65 10^6 /uL (4.18-5.48); Red Cell Distribution Width 13 % (10-15); White Blood Count 4.9 10^3/uL (3.5-10.8)
[2022-09-08 07:29] LABS: Albumin 3.8 g/dL (3.2-5.2); Albumin/Globulin Ratio 1.9 (1-3); Calcium 8.3 mg/dL (8.6-10.3); Total Bilirubin 0.7 mg/dL (0.2-1.0); Total Protein 5.8 g/dL (6.4-8.9); eGFR CKD-EPI 49.3 (>60)
[2022-09-08] MEDS: Cholecalciferol (VIT D3) 1,000 unit TAB PO SCH (08:56)
[2022-09-08] MEDS: Polyethylene Glycol 3350 17 GM PACKET PO SCH ×2 (08:56→23:14)
[2022-09-08] MEDS: CMC:Dorzolamide/Timolol OPTH (NF) 10 ML BOT RIGHT EYE SCH ×3 (08:57→23:20)
[2022-09-08] MEDS: Enoxaparin 40 MG/0.4 ML SYR SUBCUT SCH (14:15)
[2022-09-08] MEDS: Senna TAB 8.6 mg TAB PO SCH (23:14)
[2022-09-08] MEDS: Latanoprost 0.005% 2.5 ml BTL RIGHT EYE SCH ×2 (23:16→23:21)
[2022-09-09 05:45] LABS: PCO2 Arterial 44 mmHg (35-45); PO2 Arterial 76 mmHg (80-100)
[2022-09-09 06:09] LABS: ABS Eosinophils 0.1 10^3/ul (0-0.6); ABS Lymphocytes 0.6 10^3/ul (1.0-4.8); ABS Monocytes 0.4 10^3/ul (0-0.8); ABS Neutrophils 3.9 10^3/ul (1.5-7.7); Eosinophil % 1.6 %; Hematocrit 38 % (42-52); Hemoglobin 12.5 g/dL (14.0-18.0); Lymphocyte % 12.8 %; Mean Corpuscular HGB Conc 33 g/dL (31-36); Mean Corpuscular Hemoglobin 30 pg (27-31); Mean Corpuscular Volume 90 fL (80-94); Mean Platelet Volume 6.5 fL (7.4-10.4); Nucleated Red Blood Cells % 0.1; Platelet Count 186 10^3/uL (150-450); Red Blood Count 4.19 10^6 /uL (4.18-5.48); Red Cell Distribution Width 14 % (10-15)
[2022-09-09 06:56] LABS: Calcium 8.4 mg/dL (8.6-10.3); Potassium 4.1 mmol/L (3.5-5.0); eGFR CKD-EPI 63.8 (>60)
[2022-09-09] MEDS: Cholecalciferol (VIT D3) 1,000 unit TAB PO SCH (09:32)
[2022-09-09] MEDS: Polyethylene Glycol 3350 17 GM PACKET PO SCH ×2 (09:32→20:52)
[2022-09-09] MEDS: CMC:Dorzolamide/Timolol OPTH (NF) 10 ML BOT RIGHT EYE SCH ×2 (09:32→20:53)
[2022-09-09] MEDS: SPIRIVA Respimat (tiotropium) 2.5 mcg/inh Inhaler INH SCH (11:29)
[2022-09-09] MEDS: Enoxaparin 40 MG/0.4 ML SYR SUBCUT SCH (14:45)
[2022-09-09] MEDS: Senna TAB 8.6 mg TAB PO SCH (20:52)
[2022-09-09] MEDS: Latanoprost 0.005% 2.5 ml BTL RIGHT EYE SCH (20:54)
[2022-09-10] MEDS: SPIRIVA Respimat (tiotropium) 2.5 mcg/inh Inhaler INH SCH (07:53)
[2022-09-10] MEDS: CMC:Dorzolamide/Timolol OPTH (NF) 10 ML BOT RIGHT EYE SCH ×2 (08:46→20:07)
[2022-09-10] MEDS: Cholecalciferol (VIT D3) 1,000 unit TAB PO SCH (08:46)
[2022-09-10] MEDS: Polyethylene Glycol 3350 17 GM PACKET PO SCH ×2 (08:46→20:10)
[2022-09-10] MEDS: Enoxaparin 40 MG/0.4 ML SYR SUBCUT SCH (14:53)
[2022-09-10] MEDS: Latanoprost 0.005% 2.5 ml BTL RIGHT EYE SCH (20:07)
[2022-09-10] MEDS: Senna TAB 8.6 mg TAB PO SCH (20:07)
[2022-09-11] MEDS: SPIRIVA Respimat (tiotropium) 2.5 mcg/inh Inhaler INH SCH (07:34)
[2022-09-11] MEDS: Polyethylene Glycol 3350 17 GM PACKET PO SCH ×2 (08:36→20:51)
[2022-09-11] MEDS: CMC:Dorzolamide/Timolol OPTH (NF) 10 ML BOT RIGHT EYE SCH ×2 (08:39→20:51)
[2022-09-11] MEDS: Cholecalciferol (VIT D3) 1,000 unit TAB PO SCH (08:39)
[2022-09-11] MEDS: Enoxaparin 40 MG/0.4 ML SYR SUBCUT SCH (14:03)
[2022-09-11] MEDS ORDERED: Ondansetron 4 mg VIAL 2 MG/ML 2 ml VIAL ONE (18:49)
[2022-09-11] MEDS: Ondansetron 4 mg VIAL 2 MG/ML 2 ml VIAL IV PRN (18:51)
[2022-09-11] MEDS: Latanoprost 0.005% 2.5 ml BTL RIGHT EYE SCH (20:51)
[2022-09-11] MEDS: Senna TAB 8.6 mg TAB PO SCH (20:51)
[2022-09-12] MEDS: SPIRIVA Respimat (tiotropium) 2.5 mcg/inh Inhaler INH SCH (06:59)
[2022-09-12] MEDS: Polyethylene Glycol 3350 17 GM PACKET PO SCH ×2 (08:07→20:50)
[2022-09-12] MEDS: CMC:Dorzolamide/Timolol OPTH (NF) 10 ML BOT RIGHT EYE SCH ×2 (08:09→20:47)
[2022-09-12] MEDS: Cholecalciferol (VIT D3) 1,000 unit TAB PO SCH (08:09)
[2022-09-12] MEDS: Enoxaparin 40 MG/0.4 ML SYR SUBCUT SCH (15:51)
[2022-09-12] MEDS: Ondansetron 4 mg VIAL 2 MG/ML 2 ml VIAL IV PRN (17:10)
[2022-09-12] MEDS: Latanoprost 0.005% 2.5 ml BTL RIGHT EYE SCH (20:48)
[2022-09-12] MEDS: Senna TAB 8.6 mg TAB PO SCH (20:48)
[2022-09-13] MEDS: SPIRIVA Respimat (tiotropium) 2.5 mcg/inh Inhaler INH SCH (08:29)
[2022-09-13] MEDS: Polyethylene Glycol 3350 17 GM PACKET PO SCH (11:31)
[2022-09-13] MEDS: CMC:Dorzolamide/Timolol OPTH (NF) 10 ML BOT RIGHT EYE SCH (11:38)
[2022-09-13 11:47] VITALS: BP 104/80
[2022-09-13] MEDS: Cholecalciferol (VIT D3) 1,000 unit TAB PO SCH (11:52)
[2022-09-19 18:13] LABS: Anti-Glial/Neuronal Nuc Ab-1 A Negative titer (<1:240); Anti-Neuronal Nuclear Ab Type1 Negative titer (<1:240); Anti-Neuronal Nuclear Ab Type2 Negative titer (<1:240); Anti-Neuronal Nuclear Ab Type3 Negative titer (<1:240); CRMP-5 IgG Antibody Negative titer (<1:240); Purkinje Cell Cytoplasm Typ Tr Negative titer (<1:240); Purkinje Cell Cytoplasm Type 1 Negative titer (<1:240); Purkinje Cell Cytoplasm Type 2 Negative titer (<1:240)
== END 2022-09-13 15:25 | disposition home or self-care (01) | DRG 189 ==
LOC: ED 10:00 → EDHOLD 13:28 → SUATTDRO 13:28 → ICU 18:23 → SSU 09-01 16:07
PROVIDERS: ADMIT Internal Medicine Critical Care Medicine; ATTEND Internal Medicine

== ENCOUNTER 2022-09-30 13:43 | Inpatient (IN) ==
[2022-09-30] MEDS ORDERED: Albuterol/Ipratropium NEB.SOL (2.5/0.5 MG) 3 ML NEB.SOLN INH ONE ×3 (14:08→14:09)
[2022-09-30] MEDS ORDERED: methylPREDNISolone SOD SUCC 125 mg 2 ML VIAL IV ONE (14:12)
[2022-09-30 14:31] LABS: PO2 Arterial 267 mmHg (80-100)
[2022-09-30 14:36] LABS: PCO2 Arterial 98 mmHg (35-45)
[2022-09-30 15:01] LABS: PO2 Arterial 303 mmHg (80-100)
[2022-09-30 15:10] LABS: Activated Partial Thrombo Time 28.7 seconds (26.0-38.0); INR 1.04 (0.88-1.18)
[2022-09-30 15:17] LABS: PCO2 Arterial > 100 mmHg (35-45)
[2022-09-30 15:18] LABS: High Sens Troponin Baseline 18 pg/mL (<20)
[2022-09-30] MEDS ORDERED: Rocuronium 50 mg VIAL 10 mg/ml 5 ml VIAL (50 mg) ONE ×2 (15:19→15:30)
[2022-09-30] MEDS ORDERED: Succinylcholine 200 mg VIAL 20 mg/ml 10 ml VIAL (200 mg) ONE (15:20)
[2022-09-30] MEDS ORDERED: Propofol 10 mg/ml 100 ML BTL 1,000 MG/100 ML BTL ONE (15:26)
[2022-09-30] MEDS ORDERED: Etomidate 40 mg/20 ml (2 MG/ML) 20 ml VIAL (40 mg) ONE (15:30)
[2022-09-30 15:32] LABS: ABS Lymphocytes 0.4 10^3/ul (1.0-4.8); ABS Monocytes 0.3 10^3/ul (0-0.8); ABS Neutrophils 7.7 10^3/ul (1.5-7.7); Eosinophil % 0.4 %; Hematocrit 43 % (42-52); Lymphocyte % 4.9 %; Mean Corpuscular HGB Conc 33 g/dL (31-36); Mean Corpuscular Hemoglobin 30 pg (27-31); Mean Corpuscular Volume 92 fL (80-94); Mean Platelet Volume 6.5 fL (7.4-10.4); Platelet Count 203 10^3/uL (150-450); Red Blood Count 4.67 10^6 /uL (4.18-5.48); Red Cell Distribution Width 14 % (10-15); White Blood Count 8.4 10^3/uL (3.5-10.8)
[2022-09-30] MEDS ORDERED: Atropine 0.1 MG/ML 10 ml SYR (1 mg) ONE (15:59)
[2022-09-30] MEDS ORDERED: Piperacillin/Tazobac ADVAN 3.375 GM in NS 0.9% 100 ml BAG 100 ML IV ONE (16:26)
[2022-09-30] MEDS ORDERED: Acetaminophen IV 1 GM/100ML 1,000 MG/100 ML BAG IV PRN (16:26)
[2022-09-30] MEDS ORDERED: Norepinephrine 16MCG/ML BAG NS 4,000 MCG/250 ML BAG IV ONE (16:30)
[2022-09-30 16:39] LABS: PO2 Arterial 275 mmHg (80-100)
[2022-09-30 16:44] LABS: PCO2 Arterial 83 mmHg (35-45)
[2022-09-30] MEDS ORDERED: Norepinephrine 16MCG/ML BAG NS 4,000 MCG/250 ML BAG IV SCH (17:00)
[2022-09-30] MEDS ORDERED: Zosyn per Pharmacy NOTE FOLLOW UP SCH (17:00)
[2022-09-30 17:01] LABS: Albumin 4.6 g/dL (3.2-5.2); CO2 Carbon Dioxide 26 mmol/L (22-32); Calcium 9.5 mg/dL (8.6-10.3); Chloride 93 mmol/L (101-111); Sodium 130 mmol/L (135-145)
[2022-09-30 17:07] LABS: ALT 14 U/L (7-52); Albumin/Globulin Ratio 1.6 (1-3); Alkaline Phosphatase 60 U/L (35-149); Blood Urea Nitrogen 29 mg/dL (6-24); C Reactive Protein 13.78 mg/L (<8.01); Globulin 2.8 g/dL (2-4); Glucose 135 mg/dL (70-100); Total Protein 7.4 g/dL (6.4-8.9)
[2022-09-30 17:25] LABS: Anion Gap 11 mmol/L (2-11)
[2022-09-30] MEDS ORDERED: Morphine 4 MG/ML VIAL (1 ml) IV PRN (18:19)
[2022-09-30] MEDS ORDERED: Norepinephrine 16MCG/ML BAGD5W 0 MCG/0 ML BAG IV ONE (20:13)
[2022-09-30] MEDS ORDERED: ZOSYN 3.375 GM Q8H per EXTENDED INFUSION IV SCH (22:00)
[2022-09-30 22:50] VITALS: BP 49/34
== END 2022-09-30 22:24 | disposition expired | DRG 208 ==
LOC: ED 13:43 → EDHOLD 16:23 → ICU 17:00
PROVIDERS: ADMIT Internal Medicine; ATTEND Internal Medicine